=== PATIENT | female | born 1990 | race Caucasian/White ===

== ENCOUNTER 2016-07-10 21:28 | Outpatient (CLI) | payer OTHER | END 2016-07-10 21:29 | disposition critical access hospital (66) | DX: R11.2 Nausea with vomiting, unspecified (principal); T18.128A Food in esophagus causing other injury, initial encounter | CPT/HCPCS: A0425; A0429 ==

== ENCOUNTER 2019-05-10 17:17 | Outpatient (CLI) | payer OTHER | END 2019-05-10 17:18 | disposition critical access hospital (66) | LOC: EMS 17:17 | PROVIDERS: ATTEND Surgery | DX: R51 Headache (principal); M54.2 Cervicalgia; V49.40XA Driver injured in collision with unspecified motor vehicles in traffic accident, initial encounter; Y92.413 State road as the place of occurrence of the external cause | CPT/HCPCS: A0425; A0429 ==

== ENCOUNTER 2019-05-10 17:52 | Emergency (ER) | payer OTHER ==
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
[2019-05-10] MEDS ORDERED: IBUPROFEN 600 MG TABLET PO STA (20:44)
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
[2019-05-10 21:07] VITALS: BP 166/123
== END 2019-05-10 21:09 | disposition home or self-care (01) ==
LOC: EDUNIT# → ED 17:52
DX: S16.1XXA Strain of muscle, fascia and tendon at neck level, initial encounter (principal); V89.2XXA Person injured in unspecified motor-vehicle accident, traffic, initial encounter; Y93.89 Activity, other specified; Y92.410 Unspecified street and highway as the place of occurrence of the external cause
CPT/HCPCS: 72040; 99283; A9270

== ENCOUNTER 2019-06-30 08:00 | Outpatient (CLI) | payer OTHER ==
[2019-06-30 18:50] LABS: BASOPHILS % (AUTO) 0.3 %; EOSINOPHILS # (AUTO) 0.1 10^3/uL (0.0-0.7); EOSINOPHILS % (AUTO) 1.4 %; HGB - HEMOGLOBIN 10.9 g/dL (12.0-16.0); LYMPHOCYTES # (AUTO) 3.4 10^3/uL (1.5-3.5); LYMPHOCYTES % (AUTO) 36.2 %; MEAN CORPUSCULAR HEMOGLOBIN 23.5 pg (27.0-31.0); MEAN CORPUSCULAR HGB CONC 29.9 g/dL (32.0-36.0); MEAN CORPUSCULAR VOLUME 78.4 fL (81.0-99.0); MEAN PLATELET VOLUME 10.5 fL (7.9-10.8); MONOCYTES # (AUTO) 0.8 10^3/uL (0.0-1.0); MONOCYTES % (AUTO) 8.4 %; NEUTROPHILS % (AUTO) 53.2 %; PLT - PLATELET COUNT 223 10^3/uL (130-450); RED BLOOD COUNT 4.64 10^6/uL (4.20-5.40); RED CELL DISTRIBUTION WIDTH 15.3 % (12.0-15.0); WHITE BLOOD COUNT 9.4 x10^3/uL (4.8-10.8)
[2019-06-30 18:58] LABS: ALBUMIN 3.9 g/dL (3.2-5.5); ALBUMIN/GLOBULIN RATIO 1.1 (1.0-2.2); BILIRUBIN,TOTAL 0.3 mg/dL (0.2-1.0); CREATININE 0.6 mg/dL (0.4-1.0); TOTAL PROTEIN 7.3 g/dL (6.7-8.2)
== END 2019-06-30 23:59 | disposition home or self-care (01) ==
LOC: LAB.WCP 08:00
PROVIDERS: ATTEND Family Medicine
DX: K21.9 Gastro-esophageal reflux disease without esophagitis (principal); R19.7 Diarrhea, unspecified
CPT/HCPCS: 36415; 80053; 85025

== ENCOUNTER 2020-12-14 08:00 | Outpatient (CLI) | payer OTHER | END 2020-12-14 23:59 | disposition home or self-care (01) | LOC: LAB.WC 08:00 | PROVIDERS: ATTEND Physician Assistant Medical | DX: J06.9 Acute upper respiratory infection, unspecified (principal); Z20.822 Contact with and (suspected) exposure to COVID-19 ==

== ENCOUNTER 2023-02-24 08:00 | Outpatient (CLI) | payer OTHER | END 2023-02-24 23:59 | disposition home or self-care (01) | LOC: LAB.N 08:00 | PROVIDERS: ATTEND Registered Nurse | DX: N64.52 Nipple discharge (principal); N63.0 Unspecified lump in unspecified breast; N64.4 Mastodynia | CPT/HCPCS: 87070; 87205 ==

== ENCOUNTER 2023-03-11 07:47 | Outpatient (CLI) | payer OTHER ==
--- NOTE | 2023-03-12 10:39 | Mammography Report ---
BILATERAL DIGITAL DIAGNOSTIC MAMMOGRAM 3D/2D WITH MAGNIFICATION: 03/11/2023 CLINICAL: Bloody nipple discharge left breast. Baseline exam. No prior exams were available for comparison. Both breasts are heterogeneously dense, which may obscure small masses (category c / 51-75% glandular tissue). No significant masses, calcifications, or other findings are seen in either breast. IMPRESSION: INCOMPLETE: NEEDS ADDITIONAL IMAGING EVALUATION No mammographic evidence of malignancy. A targeted ultrasound is recommended and will immediately follow. Based on the Tyrer Cuzick model (a risk assessment model) the patients lifetime risk is 12.8% and he r 10 year risk is 0.7%. According to the ACR, ACS, and NCCN guidelines, an annual breast MRI exam ana ng with mammogram is recommended if the patients lifetime risk is 20% or greater. This exam was interpreted at Station ID: [id number]. NOTE: For mammograms, a report in lay terms will be sent to the patient. Approximately 15% of breast malignancies will not be visualized mammographically. In the management of a palpable breast mass, a negative mammogram must not discourage biopsy of a clinically suspicious lesion. Electronically Signed By: Chico Yusuf M.D. slc/:03/11/2023 08:57:56 ACR BI-RADS Category 0: Incomplete 3340F PARENCHYMAL PATTERN: (D) - The breast(s) demonstrate(s) heterogeneously dense fibroglandular parivettey tati. BI-RADS CATEGORY: (0) - 0 Ultrasound [id number] Immediate follow-up LATERALITY: (B)
--- NOTE | 2023-03-12 10:39 | Ultrasound Report ---
LIMITED ULTRASOUND OF LEFT BREAST: 03/11/2023 CLINICAL: Bloody nipple discharge left breast. Comparison is made to exam dated: 03/11/2023 mammogram - [facility]. Real-time ultrasound of the left breast retroareolar was performed. Ramos scale images of the real-ti me examination were reviewed. No significant abnormalities were seen sonographically in the left breast. IMPRESSION: NEGATIVE There is no sonographic evidence of malignancy. No dilated ducts, mass, or cyst. Exam findings were conveyed to the patient. Report of bloody nipple discharge which has lessened. Pat ient is advised to monitor for significant change. Clinical follow-up is recommended. If bloody nippl e discharge continues, breast MRI with IV contrast could be considered. This exam was interpreted at Station ID: [id number]. Electronically Signed By: Chico Yusuf M.D. slc/:03/11/2023 09:03:03 Ultrasound BI-RADS: 1 Negative BI-RADS CATEGORY: (1) - 1 Unspecified - other recall n/a LATERALITY: (B)
== END 2023-03-11 07:48 | disposition home or self-care (01) ==
LOC: DI 07:47
PROVIDERS: ATTEND Registered Nurse
DX: N64.52 Nipple discharge (principal); N63.20 Unspecified lump in the left breast, unspecified quadrant; N64.4 Mastodynia